=== PATIENT | male | born 1950 | race Caucasian/White ===

== ENCOUNTER 2020-01-13 04:27 | Inpatient (IN) | payer OTHER ==
[~2020-01-13] VITALS: Ht 180.3 cm; Wt 105.1 kg
[2020-01-13] VITALS (7 sets, daily range): BP systolic 120–149; BP diastolic 69–89
[2020-01-13] MEDS ORDERED: NOHOMEMEDICATIONS (04:31)
[2020-01-13 05:11] LABS: ANION GAP 9 mmol/L (7-16); BUN 18 mg/dL (7-18); CALCIUM 8.6 mg/dL (8.5-10.1); CHLORIDE 103 mmol/L (98-107); CO2 26 mmol/L (21-32); CREATININE 0.8 mg/dL (0.7-1.3); GLUCOSE 99 mg/dL (74-106); POTASSIUM 4.1 mmol/L (3.5-5.1); SODIUM 138 mmol/L (136-145)
[2020-01-13 05:16] LABS: APTT 24.7 Seconds (24.5-32.8); PROTIME 10.2 Seconds (9.3-11.4)
[2020-01-13 05:20] LABS: ALBUMIN 4.2 g/dL (3.4-5.0); SGOT 20 U/L (15-37); SGPT 26 U/L (30-65); TOTAL BILIRUBIN 0.2 mg/dL (0.2-1.0); TOTAL PROTEIN 7.8 g/dL (6.4-8.2); TROPONIN-I <0.06 ng/mL (<0.06)
[2020-01-13 05:32] LABS: HEMOGLOBIN 16.4 gm/dL (14.0-18.0); MONOCYTES 6.6 % (1.0-8.0); RBC 4.59 mil/uL (4.50-6.00)
[2020-01-13 05:34] LABS: EOSINOPHILS 2.8 % (0.0-3.0); HEMATOCRIT 48.5 % (42.0-52.0); LYMPHOCYTES 52.9 % (24.0-44.0); MCH 35.7 pg (26.0-34.0); MCHC 33.8 g/dL (28.0-37.0); MCV 105.5 fL (80.0-100.0); PLATELET COUNT 181 thou/uL (150-400); POLYS 36.7 % (36.0-66.0); RDW 13.7 % (10.5-14.5); WBC 8.2 thou/uL (4.0-11.0)
--- NOTE | 2020-01-13 08:05 | EKG ---
[facility] [place] [address] ELECTROCARDIOGRAM REPORT Name: ELENITA PINEDO Room #: 201-P ADM IN M.R.#: [id number] Admission: 01/13/20 Attend Phys: Frank March MD Discharge: Date of : 54 Report #: [id number] THIS REPORT FOR: cc: Rivas Chavez MD, Bruce H. 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
[2020-01-13 08:38] LABS: CHOLESTEROL 202 mg/dL (<200); HDL CHOLESTEROL 56 mg/dL (>40); LDL CHOLESTEROL 118 mg/dL (<100); TC:HDL 3.6 Ratio (Not establshd); TRIGLYCERIDE 140 mg/dL (<150); VLDL 28 mg/dL (<40)
--- NOTE | 2020-01-13 10:02 | HC ---
[facility] [place] [address] CONSULTATION Name: ELENITA PINEDO Room #: 201-P ADM IN M.R.#: [id number] Admission: 01/13/20 Attend Phys: Frank March MD Discharge: Date of : 54 Report #: [id number] THIS REPORT FOR: cc: Rivas Chavez MD, Bruce H. MD Khosla, Parveen K. MD ~ CC: Rivas Nazario DATE OF SERVICE: 01/13/2020 HISTORY OF PRESENT ILLNESS: This is a 69-year-old male patient who was seen by me for a stroke affecting the right side of the body. This is an interim note and the full note will be dictated later on this patient. I talked to the Emergency Room physician and subsequently talked to the patient. As I understand from the Emergency Room physician as well as the patient, the patient went to sleep at midnight or just before that. He drank what looks like significant amount of alcohol before going to sleep. He said he drinks about every other night. At about 3:15 or so this morning, he noticed that he was paralyzed on the right side and his speech was affected to some extent. He is very definite that he woke up with a stroke and he was not normal when he woke up. So, we spent a lot of time, but it is pretty clear that last seen normal was midnight or just before that. He did not call the ambulance as I understand from the Emergency Room physician and in fact drove to the Emergency Room. He was initially seen by Emergency Room physician and he did a CT scan of the head as well as CTA and CT perfusion. I was called at home around 5:30 a.m. this morning and I came from home immediately and saw this patient and this is the history he gives me also. He does not have that many risk factors for the stroke except he is obese. He has no reactive hypertension at the moment and he says he does not smoke. As I said, rest of the history will be done later on. PHYSICAL EXAMINATION: The patient's examination indicate on my examination, he is alert and responsive. He can follow simple commands. His speech looks pretty much unremarkable to me. I did not appreciate much weakness on the right side of the face, but he has no movement in the right upper extremity. His position sense is absent in the right upper extremity. It is present in the right lower extremity. He can move the right lower extremity against resistance. The family is pretty definite that he was not able to move the right lower extremity either and had some facial weakness at that time. IMPRESSION AND DISCUSSION: I discussed with the patient that his clinical presentation is consistent with a left hemispheric cerebrovascular accident. We need to look at his heart closely. He has no history of migraine. He has never been told that he has any patent foramen ovale, but it needs to be looked very closely. [address] [address] CONSULTATION Name: ELENITA PINEDO Room #: 201-P ADM IN M.R.#: [id number] Admission: 01/13/20 Attend Phys: Frank March MD Discharge: Date of : 54 Report #: [id number] I had a long discussion with the patient's family, patient. We will try to see if this patient is a TPA candidate in anyway. His time of onset is at midnight. So, his 3-hour window has passed at 3 a.m. and his 4-1/2 hour window has passed at 4:30. There is some data to suggest that if salvageable tissue can be demonstrated, then we can give TPA even after that and therefore I got a CT angio and perfusion report and they are all normal. So, we have not been able to document any salvageable tissue on the basis of imaging either. That make it up because he does appear to have a stroke and we tried to look for any indication to give him TPA, but unfortunately we cannot find one. I discussed that aspect with him and discussed with him that he still has an option to get TPA, but that is where we are. After discussing all his options with him, the plan was to give him some fluid to increase his blood pressure because he has no reactive hypertension. We will also give him thiamine. This patient is unlikely to have any brachial plexus injury because although present symptom is only in the right arm, but he had definitely symptoms in the right leg before. He has no history of migraine, so most likely it is stroke, but unfortunately after even looking for any indication to give him TPA, we cannot find any definite indication to give him that, but that option was given to him. He wants to continue conservative treatment, but we need to find out why he had a stroke, so that we can take some preventive measures in this patient to prevent another stroke and I am going to get an MRI done stat, although we will not be able to do the diffusion perfusion mismatch because that software is not available here in this hospital. All of it was discussed with the patient and the family in detail and I had multiple discussions with Emergency Room physician and we are going to give him thiamine. I will see the patient back later on this morning. Thank you very much for this referral and another note will be dictated that time. <ELECTRONICALLY SIGNED> By: Cecil May MD 01/13/20 1002 [id number] 0642 Cecil May MD /[place]
--- NOTE | 2020-01-13 11:26 | 2DMMODE ---
[facility] [place] [address] [place] [address] 2 D/M-MODE ECHOCARDIOGRAM Name: ELENITA PINEDO Room #: 201-P ADM IN M.R.#: [id number] Admission: 01/13/20 Attend Phys: Frank March MD Discharge: Date of : 54 Report #: [id number] THIS REPORT FOR: cc: Rivas Chavez MD, Bruce H. MD Park, Jin S. MD ~ APPROVED REPORT Study performed: 01/13/2020 10:39:38 EXAM: Comprehensive 2D, Doppler, and color-flow Echocardiogram Patient Location: Bedside Room #: 201 Status: routine BSA: 2.29 HR: 61 bpm BP: 135/70 mmHg Rhythm: NSR Other Information Study Quality: Adequate Indications CVA Echo Enhancing Agent Indication: Rule out Shunt Agent(s) / Amount(s) Used: Agitated Saline 12 cc 2D Dimensions RVDd: 37.24 mm IVSd: 11.44 (7-11mm) LVOT Diam: 21.57 (18-24mm) LVDd: 54.76 mm PWd: 11.19 (7-11mm) Ascending Ao: 40.58 (22-36mm) LVDs: 36.20 (25-40mm) Aortic Root: 38.30 mm Volumes Left Atrial Volume (Systole) Single Plane 4CH: 52.06 mL Single Plane 2CH: 58.93 mL LA ESV Index: 28.00 mL/m2 Aortic Valve AoV Peak Eldon.: 1.60 m/s [facility] [address] [place] [address] 2 D/M-MODE ECHOCARDIOGRAM Name: ELENITA PINEDO Room #: 201-P ADM IN M.R.#: [id number] Admission: 01/13/20 Attend Phys: Frank March MD Discharge: Date of : 54 Report #: [id number] AO Peak Gr.: 10.28 mmHg LVOT Max P.65 mmHg LVOT Max V: 1.38 m/s DEREJE Vmax: 3.15 cm2 Mitral Valve E/A Ratio: 1.4 MV Decel. Time: 190.45 ms MV E Max Eldon.: 1.08 m/s MV A Eldon.: 0.75 m/s MV PHT: 55.23 ms IVRT: 58.82 ms Pulmonary Valve PV Peak Eldon.: 1.26 m/s PV Peak Gr.: 6.35 mmHg Pulmonary Vein P Vein S: 0.63 m/s P Vein A: 0.34 m/s P Vein D: 0.41 m/s P Vein A Dur.: 138.4 msec P Vein S/D Ratio: 1.54 Left Ventricle The left ventricle is normal size. There is normal LV segmental wall motion. There is normal left ventricular wall thickness. Left ventricular systolic function is normal. LVEF is 55-60%. Right Ventricle The right ventricle is normal size. The right ventricular systolic function is normal. Atria The left atrium size is normal. No shunting noted with contrast bubble injection. The right atrium size is normal. Aortic Valve The aortic valve is normal in structure. No aortic regurgitation is present. There is no aortic valvular stenosis. Mitral Valve The mitral valve is normal in structure. There is no mitral valve regurgitation noted. No evidence of mitral valve stenosis. Tricuspid Valve The tricuspid valve is normal in structure. There is no tricuspid valve regurgitation noted. Unable to assess PA pressure. Pulmonic Valve [facility] [address] [place] [address] 2 D/M-MODE ECHOCARDIOGRAM Name: ELENITA PINEDO Room #: 201-P ADM IN M.R.#: [id number] Admission: 01/13/20 Attend Phys: Frank March MD Discharge: Date of : 54 Report #: [id number] The pulmonary valve is normal in structure. There is no pulmonic valvular regurgitation. Great Vessels Aortic root is borderline dilated. Ascending aorta is dilated at 4.1cm. IVC is not well visualized. Pericardium There is no pericardial effusion. <Conclusion> The left ventricle is normal size. There is normal left ventricular wall thickness. Left ventricular systolic function is normal. The right ventricle is normal size. The left atrium size is normal. No shunting noted with contrast bubble injection. The aortic valve is normal in structure. There is no mitral valve regurgitation noted. There is no tricuspid valve regurgitation noted. <ELECTRONICALLY SIGNED> By: Dewey Davenport MD 01/13/20 1125 1125 1125 Dewey Davenport MD /INF
[2020-01-14 00:45] VITALS: BP 126/81
[2020-01-14 01:06] LABS: GLYCOHEMOGLOBIN (HGB A1C) 5.8 % (4.8-5.6)
[2020-01-14 04:45] VITALS: BP 120/77; BP 130/81
[2020-01-14 05:42] LABS: ABSOLUTE NEUTROPHILS 3.8 thou/uL (1.4-8.2); BASOPHILS 0.6 % (0.0-2.0); EOSINOPHILS 2.1 % (0.0-3.0); HEMOGLOBIN 14.6 gm/dL (14.0-18.0); LYMPHOCYTES 43.1 % (24.0-44.0); MCH 35.7 pg (26.0-34.0); MCHC 33.8 g/dL (28.0-37.0); MCV 105.6 fL (80.0-100.0); MONOCYTES 8.4 % (1.0-8.0); PLATELET COUNT 193 thou/uL (150-400); POLYS 45.8 % (36.0-66.0); RBC 4.07 mil/uL (4.50-6.00); RDW 13.1 % (10.5-14.5); WBC 8.3 thou/uL (4.0-11.0)
[2020-01-14 06:04] LABS: CALCIUM 8.3 mg/dL (8.5-10.1); CREATININE 0.9 mg/dL (0.7-1.3); MAGNESIUM 2.1 mg/dL (1.8-2.4); POTASSIUM 3.8 mmol/L (3.5-5.1)
[2020-01-14 07:37] VITALS: BP 141/92
[2020-01-14 11:24] VITALS: BP 134/82
[2020-01-14 15:30] VITALS: BP 136/88
[2020-01-14 19:20] VITALS: BP 135/76
[2020-01-15 05:18] VITALS: BP 146/67
[2020-01-15 07:25] VITALS: BP 129/78
[2020-01-15] MEDS ORDERED: VITAMIN B-1100 M2 PO (11:55)
[2020-01-15] MEDS ORDERED: ATORVASTATIN CA10 MG PO (11:55)
[2020-01-15] MEDS ORDERED: ADULT LOW DOSE81 MG PO (11:55)
[2020-01-15] MEDS ORDERED: CLOPIDOGREL75 MG PO (11:55)
[2020-01-15 12:30] VITALS: BP 140/92
[2020-01-15 13:23] VITALS: BP 140/92
[2020-01-15 13:45] VITALS: BP 140/92
--- NOTE | 2020-01-16 13:16 | HC ---
[facility] [place] [address] CONSULTATION Name: ELENITA PINEDO Room #: 201-P DIS IN M.R.#: [id number] Admission: 01/13/20 Attend Phys: Frank March MD Discharge: 01/15/20 Date of : 54 Report #: [id number] THIS REPORT FOR: cc: Rivas Chavez MD, Bruce H. MD Couchonnal, Luis F. MD ~ CC: Rivas March CARDIOLOGY CONSULTATION REASON FOR CONSULTATION: CVA. HISTORY OF PRESENT ILLNESS: The patient is a 69-year-old who presented with stroke symptoms, found to have evidence of a stroke on CT and MRI. Carotid ultrasound showed some moderate plaquing in the left internal carotid artery, 50-70%. An echocardiogram was also performed showing normal LV size and function. No evidence of PFO. The patient denies any chest pain or chest tightness. He denies PND or orthopnea. He denies presyncope or syncope. REVIEW OF SYSTEMS: A 12-point review of systems was performed. PAST MEDICAL HISTORY: None. SOCIAL HISTORY: He does not smoke. FAMILY HISTORY: Noncontributory. ALLERGIES: Reviewed. MEDICATIONS: Reviewed. PHYSICAL EXAMINATION: GENERAL: No acute distress. HEENT: Oropharynx clear. NECK: Supple, no thyromegaly. HEART: Regular rate and rhythm. No murmurs, rubs, gallops. LUNGS: Clear to auscultation bilaterally. ABDOMEN: Soft, nontender, nondistended. EXTREMITIES: No clubbing, cyanosis, edema. The patient has right upper extremity weakness. LABORATORY DATA: Potassium 4.1, creatinine 0.8. Troponin was negative. INR 1. Hemoglobin 16, platelets 181, white count is 8.2. CT head shows an 8-mm left caudate CVA. [facility] [address] [place] [address] CONSULTATION Name: ELENITA PINEDO Room #: 201-P [facility] IN .R.#: [id number] Admission: 01/13/20 Attend Phys: Frank March MD Discharge: 01/15/20 Date of : 54 Report #: [id number] ASSESSMENT: Cryptogenic stroke. Etiology of this is unclear. I will recommend that the patient wear a hospital monitor and see me in the office as an outpatient. If there is no evidence of atrial fibrillation on this monitor, we will recommend implantation of a loop recorder. We will also optimize his risk factors as he does appear to have some peripheral vascular disease with some moderate carotid artery disease. The patient is okay for discharge. <ELECTRONICALLY SIGNED> By: Graham Keating MD 01/16/20 1316 [id number] [id number] Graham Keating MD /nt
--- NOTE | 2020-01-17 10:46 | EEG ---
[facility] [address] [place] [address] [place] [address] ELECTROENCEPHALOGRAM Name: ELENITA PINEDO Room #: 201-P DIS IN M.R.#: [id number] Admission: 01/13/20 Attend Phys: Frank March MD Discharge: 01/15/20 Date of : 54 Report #: [id number] THIS REPORT FOR: //name// CC: Rivas March DATE OF SERVICE: 01/13/2020 This patient is being evaluated for seizure. EEG was done by placing the electrode by standard 10-20 system of electrode placement. Both referential and sequential montages were used for recording. Background activity in this patient's EEG is up to about 9 Hz and 30 microvolt. The patient goes to sleep repeatedly and that is associated with bilateral slowing and vertex sharp waves. Photic stimulation is unremarkable. Throughout the record, no active epileptiform activity was noticed. IMPRESSION: In spite of the patient's history, no active epileptiform activity was noticed throughout this record. <ELECTRONICALLY SIGNED> By: Cecil May MD 01/17/20 1046 1100 [id number] Cecil May MD /nt
== END 2020-01-15 14:26 | disposition home or self-care (01) | DRG 65 ==
LOC: ER 04:27 → 2N 05:54 → EROBS 05:54 → 2N 06:30
PROVIDERS: Emergency Medicine; Nurse Practitioner; Psychiatry & Neurology Neuromuscular Medicine; ADMIT Internal Medicine; ATTEND Internal Medicine
DX: I63.9 Cerebral infarction, unspecified (principal); G81.91 Hemiplegia, unspecified affecting right dominant side; R29.810 Facial weakness; I95.9 Hypotension, unspecified; D53.9 Nutritional anemia, unspecified; Z96.652 Presence of left artificial knee joint; I10 Essential (primary) hypertension; I48.0 Paroxysmal atrial fibrillation; N40.0 Benign prostatic hyperplasia without lower urinary tract symptoms; G47.00 Insomnia, unspecified; K59.00 Constipation, unspecified; Z79.899 Other long term (current) drug therapy; Z79.82 Long term (current) use of aspirin
CPT/HCPCS: 10081

== ENCOUNTER → 2020-02-26 | Outpatient (CLI) | payer OTHER ==
[~2020-02-26] MED LIST: ADULT LOW DOSE81 MG PO; ATORVASTATIN CA10 MG PO; CLOPIDOGREL75 MG PO; NOHOMEMEDICATIONS; VITAMIN B-1100 M2 PO
== END ==
LOC: SJCVC 16:20
PROVIDERS: ATTEND Internal Medicine Cardiovascular Disease
DX: I65.22 Occlusion and stenosis of left carotid artery (principal); R00.1 Bradycardia, unspecified; I63.9 Cerebral infarction, unspecified; I10 Essential (primary) hypertension; E78.5 Hyperlipidemia, unspecified; Z79.899 Other long term (current) drug therapy

== ENCOUNTER → 2020-06-03 | Outpatient (CLI) | payer OTHER | LOC: SJCVC 14:53 | PROVIDERS: ATTEND Internal Medicine Infectious Disease | DX: R00.1 Bradycardia, unspecified (principal); I63.9 Cerebral infarction, unspecified; E78.00 Pure hypercholesterolemia, unspecified; I10 Essential (primary) hypertension; Z79.82 Long term (current) use of aspirin; Z79.899 Other long term (current) drug therapy; Z87.891 Personal history of nicotine dependence ==